=== PATIENT | male | born 2005 | race Caucasian/White ===

== ENCOUNTER 2025-03-16 13:44 | Emergency (ER) | payer OTHER, SELFPAY ==
[2025-03-16 13:57] VITALS: BP 138/85; PULSE 91; RESP 16; TEMP 36.6; O2SAT 100
--- NOTE | 2025-03-16 14:15 | ED_ITS ---
HPI - General Adult General Chief complaint: Upper Respiratory Infection Stated complaint: SORE THROAT Source: patient Mode of arrival: ambulatory Limitations: no limitations History of Present Illness HPI narrative: Pt presents for evaluation of sick symptoms since yesterday. Symptoms include sinus congestion, postnasal drainage, sore throat and diarrhea. Fever, chills, cough, shortness of, nausea, vomiting. No recent sick contacts to his knowledge. He does not smoke or vape. He has taken allergy medication which has provided him with some improvement in his symptoms. Related Data Home Medications ?Medication ?Instructions ?Recorded ?Confirmed ?Last Taken ?Type No Home Medications 03/16/25 03/16/25 U nknown History Allergies Allergy/AdvReac Type Severity Reaction Status Date / Time No Known Allergies Allergy Verified 03/16/25 13:56 Course Course Emergency Course: This is a 19 year male who presented for evaluation of sick symptoms. COVID, influenza, strep were all negative. Exam consistent with acute viral syndrome. Increase hydration. [id number] agents for symptom management. Follow up primary provider. Go to the ER for worsening symptoms. Patient in agreement with plan of care. Level of Care: Express Care Visit Vital Signs Vital signs: Vital Signs Temperature 36.6 C 03/16/25 13:57 Pulse Rate 91 03/16/25 13:57 Respiratory Rate 16 03/16/25 13:57 Blood Pressure 138/85 03/16/25 13:57 Pulse Oximetry 03/16/25 13:57 Temperature 36.6 C 03/16/25 13:57 Pulse Rate 91 03/16/25 13:57 Respiratory Rate 16 03/16/25 13:57 Blood Pressure 138/85 03/16/25 13:57 Pulse Oximetry 03/16/25 13:57 Medical Decision Making Vital Signs Vital Signs: Vital Signs Temperature 36.6 C 03/16/25 13:57 Pulse Rate 91 03/16/25 13:57 Respiratory Rate 16 03/16/25 13:57 Blood Pressure 138/85 03/16/25 13:57 Pulse Oximetry 03/16/25 13:57 Temperature 36.6 C 03/16/25 13:57 Pulse Rate 91 03/16/25 13:57 Respiratory Rate 16 03/16/25 13:57 Blood Pressure 138/85 03/16/25 13:57 Pulse Oximetry 03/16/25 13:57 Lab Data Labs: Lab Results 03/16/25 Range/Units 13:57 POC Influenza A Ag Negative (Negative) POC Influenza B Ag Negative (Negative) POC SARS CoV-2 Ag Negative (Negative) POC Grp A Strep Screen Negative (Negative) Discharge Plan Discharge Clinical Impression: Upper respiratory infection, viral Patient Disposition: Home Condition: Stable Instructions: Antibiotic Form, Upper Respiratory Infection (DC), Viral Syndrome (ED) Additional Instructions: MAKE SURE TO DRINK PLENTY OF FLUIDS AND GET REST SUDAFED SHOULD HELP WITH SINUS CONGESTION PHENYLEPHRINE MAY HELP WITH RUNNY NOSE CEPACOL LOZENGES SHOULD HELP WITH SORE THROAT Patient Language: Indonesian Prescriptions: No Action No Home Medications Follow-up/Referrals: Solomon Arana MD [Physician, Family Practice] Stand Alone Forms: Work/School Release IP Time of Disposition: 14:21
[2025-03-16 14:19] LABS: EDCOVIDSCREEN Negative (Negative); EDINFLUASCREEN Negative (Negative); EDINFLUBSCREEN Negative (Negative); EDSTREPNEGPOS1 Negative (Negative)
== END 2025-03-16 14:26 | disposition home or self-care (01) ==
PROVIDERS: Emergency Provider Nurse Practitioner
DX: J06.9 Acute upper respiratory infection, unspecified (principal); Z20.822 Contact with and (suspected) exposure to COVID-19
CPT/HCPCS: 87081; 87426; 87804; 87880; 99203; G0463